=== PATIENT | female | born 1950 | race Caucasian/White ===

== ENCOUNTER 2018-10-05 00:28 | Outpatient (CLI) | payer MEDICARE, BC, SELFPAY ==
--- NOTE | 2018-10-05 15:03 | DI.DEXA_ITS ---
SYMPTOM/DIAGNOSIS: SCREENING FOR OSTEOPOROSIS IN POSTMENOPAUSAL WOMAN, Z78.0 DEXA SCAN: Routine examination. The lateral spine shows no compression deformities. Evaluation of the left hip shows a total T score of -0.7 and a Z score of 0.6. Evaluation of the lumbar spine shows a total T score of -0.9 and a Z score of 0.9. These are within normal limits. No evidence of osteoporosis is present. IMPRESSION: No evidence of osteoporosis.
== END 2018-10-05 00:48 ==
PROVIDERS: PCP Nurse Practitioner Family; Visit Provider Nurse Practitioner Family
DX: Z13.820 Encounter for screening for osteoporosis (principal); Z78.0 Asymptomatic menopausal state
CPT/HCPCS: 77080

== ENCOUNTER 2020-01-11 11:58 | Outpatient (CLI) | payer MEDICARE, BC, SELFPAY ==
--- NOTE | 2020-01-11 11:00 | DI.MAMMO_ITS ---
EXAM: MG MAMMO SCREENING CLINICAL HISTORY: screening Z12.39 TECHNIQUE: Mammograms were interpreted according to the usual protocol including computer analysis w [employer] CAD system, tomosynthesis and C-view imaging. COMPARISON: FINDINGS: The breasts are of moderate density with fairly symmetrical distribution of fibroglandular tissue. N o dominant mass or clumped microcalcification is identified in either breast. The current examinatio n is compared with previous examinations including January 2018 and there has been no gross interval lester nge in appearance in comparison with the previous examinations. IMPRESSION: No specific evidence of malignancy at this time. Routine screening examinations are suggested at yea rly intervals in this age group according to the ACS ACR guidelines. BI-RADS Cat 1 - Negative: Breast Density - Category B - Scattered areas of fibroglandular density
== END 2020-01-11 12:18 ==
PROVIDERS: PCP Nurse Practitioner Family; Visit Provider Nurse Practitioner Family
DX: Z12.31 Encounter for screening mammogram for malignant neoplasm of breast (principal)
CPT/HCPCS: 77063; 77067

== ENCOUNTER 2020-10-30 03:48 | Outpatient (CLI) | payer MEDICARE, BC, SELFPAY ==
[2020-10-30 09:08] LABS: Hemoglobin A1C 5.8 % (<5.7)
[2020-10-30 09:17] LABS: Anion Gap 9.1 mmol/L (3-11); BUN 14 mg/dL (7-18); CO2 27.9 mmol/L (21.0-32.0); Calcium 9.4 mg/dL (8.5-10.1); Calculated LDL 62 mg/dL (<100); Chloride 107 mmol/L (98-107); Cholesterol 156 mg/dL (<200); Estimated GFR 55.14 (mL/min/1.73m2); Glucose 97 mg/dL (74-106); HDL Cholesterol 59 mg/dL (40-60); Potassium 4.2 mmol/L (3.5-5.1); Sodium 144 mmol/L (136-145); Triglyceride 178 mg/dL (<150)
== END 2020-10-30 03:49 | disposition home or self-care (01) ==
LOC: LBO 03:48
PROVIDERS: PCP Nurse Practitioner Family; Visit Provider Nurse Practitioner Family
DX: I10 Essential (primary) hypertension (principal); R73.03 Prediabetes; E78.5 Hyperlipidemia, unspecified
CPT/HCPCS: 36415; 80048; 80061; 83036

== ENCOUNTER 2020-11-29 04:05 | Outpatient (CLI) | payer MEDICARE, BC, SELFPAY ==
[2020-11-29 10:07] LABS: Anion Gap 7.3 mmol/L (3-11); BUN 18 mg/dL (7-18); CO2 27.7 mmol/L (21.0-32.0); Calcium 9.3 mg/dL (8.5-10.1); Chloride 107 mmol/L (98-107); Estimated GFR 55.14 (mL/min/1.73m2); Glucose 102 mg/dL (74-106); Potassium 4.4 mmol/L (3.5-5.1); Sodium 142 mmol/L (136-145)
== END 2020-11-29 04:06 | disposition home or self-care (01) ==
LOC: LBO 04:05
PROVIDERS: PCP Nurse Practitioner Family; Visit Provider Nurse Practitioner Family
DX: I10 Essential (primary) hypertension (principal)
CPT/HCPCS: 36415; 80048

== ENCOUNTER 2021-02-15 03:34 | Outpatient (CLI) | payer MEDICARE, BC, SELFPAY ==
--- NOTE | 2021-02-15 08:15 | DI.MAMMO_ITS ---
Exam(s) MAMMO SCREENING EXAM: MAMMO SCREENING CLINICAL HISTORY: screening,Z12.39 TECHNIQUE: Mammograms were interpreted according to the usual protocol including computer analysis w [employer] CAD system, tomosynthesis and C-view imaging. COMPARISON: 2011 through 2019 FINDINGS: The breasts are composed of scattered fibroglandular densities, Breast Density category B. No suspicious masses or suspicious microcalcifications are seen. No skin thickening or abnormal axillary lymph nodes are seen. There has been no significant change from prior exams. IMPRESSION: BI-RADS Category 1, Negative mammogram Yearly screening mammography is recommended. Breast Density - Category B, scattered fibroglandular densities. A negative radiographic report should not delay biopsy if a dominant or clinically suspicious mass is present. Up to ten percent of cancers are not identified on mammography. A negative report may reinforce clinical impression. Adenosis and dense breasts may obscure an underlying neoplasm. False positive reports average 6 to 10%. Patient will receive a letter notifying them of these results.
== END 2021-02-15 03:54 ==
PROVIDERS: PCP Nurse Practitioner Family; Visit Provider Nurse Practitioner Family
DX: Z12.31 Encounter for screening mammogram for malignant neoplasm of breast (principal); R92.8 Other abnormal and inconclusive findings on diagnostic imaging of breast
CPT/HCPCS: 77063; 77067

== ENCOUNTER → 2021-02-28 13:29 | Outpatient (BNVA) | payer MEDICARE, BC, SELFPAY | PROVIDERS: PCP Nurse Practitioner Family; Referring Provider Nurse Practitioner Family; Visit Provider Physical Therapy Assistant | DX: Z12.11 Encounter for screening for malignant neoplasm of colon (principal); I12.9 Hypertensive chronic kidney disease with stage 1 through stage 4 chronic kidney disease, or unspecified chronic kidney disease; N18.9 Chronic kidney disease, unspecified; Z86.010 Personal history of colon polyps ==

== ENCOUNTER 2021-03-11 07:06 | Day surgery (SDC) | payer MEDICARE, BC, SELFPAY ==
--- NOTE | 2021-03-11 06:48 | W.COLOREPORT ---
Date of service: 03/11/21 Time of Service: 08:16 Colonoscopy Report Date of procedure: 03/11/21 Pre-op diagnosis general: Colon Cancer screening, hx of polyps Post-op diagnosis procedure note: same (polyps and diverticulosis) Procedure: Colonoscopy with polypectomy Surgeon: Christine Link Anesthesia Type: MAC (ASA 2/ Dunia Atkinson CRNA) Estimated blood loss (mL): 3 Pathology: other (Transverse polyp, rectal polyp) Complications: None Disposition: same day Indications: The patient is here for Colonoscopy pre-op. Her last screening was in 2018 and was remarkable for hyperplastic and sessile serrated polyps. She has no family history of colon cancer. She has not had any bowel habit changes. -Discussed colonoscopy bowel prep as well as the procedure. Discussed possible complications of the procedure to include bleeding, pain, perforation, missed small lesion/polyp, sore throat, aspiration and adverse reaction to the medications. Questions were answered to patient?s satisfaction. No guarantees were implied or given. Prep: Miralax/Dulcolax Procedure Start Time: :16 Procedure End Time: :40 Retraction Time: 19 minutes Findings: 2 small polyp minimal sigmoid diverticulosis Procedure Description: After informed consent was obtained the patient was taken to the procedure room and placed in a left decubitous position. Monitors were applied and a time out was done. The patients name, date of , procedure, allergies to medications and metal in their body was reviewed. The patient was then sedated. Once sedated and comfortable a rectal exam was done. External exam was normal. Internal exam revealed a normal sphincter tone and no palpable masses. The scope was then introduced and retro-flexed. No internal hemorrhoids, polyps or masses were identified on retro-flexion. The scope was then advanced to the cecum without difficulty. The ileocecal vlave and appendiceal orifice were identified. The prep was good. The scope was then slowly retracted over 19 minutes back into the rectum. Polyps were removed with cold forceps in the Transverse and rectum. There was mild diverticulosis noted in the sigmoid colon. The scope was removed and the patient was woken up and taken back to Same day surgery in stable condition. The patient tolerated the procedure well and there were no immediate complications. Follow up: The patient should follow up in 5 years unless they develop changes in bowel habits or other new gastrointestinal complaints.
--- NOTE | 2021-03-11 06:50 | PDOC.DSDIS_ITS ---
Discharge Plan Disposition Patient Disposition: HOME Condition: Good Discharge Details Reason For Visit: Colonoscopy Attending Provider: Christine Link Primary Care Provider: Lorena Huerta Home Meds and New Rx's Prescriptions: Continued cholecalciferol (vitamin D3) 1,000 unit capsule 1,000 unit PO DAILY RF: 0 calcium carbonate 600 MG tablet 600 mg PO DAILY RF: 0 metoprolol succinate 100 mg tablet extended release 24 hr 100 mg PO HS RF: 0 losartan 25 mg tablet 25 mg PO HS RF: 0 Discontinued bisacodyl [Dulcolax (bisacodyl)] 5 mg tablet,delayed release (DR/EC) 5 mg PO ONCE Qty: 4 RF: 0 polyethylene glycol 3350 17 gram/dose powder 238 g PO ONCE Qty: 238 RF: 0 Discharge Instructions Instructions: Colorectal Polyps (DC), Diverticulosis (DC) Additional Instructions: Findings: 2 small polyps mild diverticulosis Follow up: 5 years Please call if you develop: fevers >101.5 Nausea or Vomiting Abdominal pain that is not transient Rectal bleeding that is more then a tbsp A hard abdomen and inability to pass gas DAY SURGERY UNIT POST ENDOSCOPY INSTRUCTIONS Instructions for everyone who is given Anesthesia: For your safety, please do the following for the next 24 Hours: a. Do not drive or operate dangerous equipment b. Do not drink alcohol beverages or use any recreational drugs for the first 24 hours or while taking pain medications. The medications in your body may have a reaction that can be dangerous. c. Do not make any important decisions or sign any important papers 1. Generally there are no restrictions on your activity after a day or so has gone by, but you may feel a bit fatigued for a few days. 2. After you arrive home you may have a light meal and return to a normal diet as you can tolerate it without feeling sick to your stomach. 3. After surgery, you may feel pain or discomfort. This should be only t ransient, but if it persists please contact your doctor. 4. If there are any questions regarding the findings of your procedure, please feel free to contact your doctor. 6. If you are unable to contact your doctor with a problem, contact the hospital at [phone]. 7. Continue all your regular medications unless directed otherwise. I understand the above instructions and have no questions. Signature of Patient or Responsible Adult Escort Date/Time Name of Responsible Adult Escort Signature of Nurse Date/Time Activity:: Activity as Tolerated Diet:: As Tolerated Discharge Orders Discharge Orders: Discharge Order (Routine); Ordered 03/11/21 Ordered By: Christine Link
[2021-03-11 07:26] VITALS: BP 150/101; PULSE 97; RESP 18; TEMP 36.3; O2SAT 96
--- NOTE | 2021-03-11 07:37 | ANES.PREOP_ITS ---
General Info Date of Service Date Performed: 03/11/21 Height: 5 ft 9.69 in Weight: 84.6 kg Body Mass Index (BMI): 27.0 Surgical Procedure: Operation Date: 03/11/21 08:20 Proposed Procedures Side Surgeon p Colonoscopy Christine Link MD Meds Allergies and Home Medications Allergies Allergy/AdvReac Type Severity Reaction Status Date / Time nickel Allergy Intermediate Skin Rash Verified 02/28/21 13:31 Home Medication Medication Instructions Recorded calcium carbonate 600 mg PO DAILY 12/30/16 cholecalciferol (vitamin D3) 25 1,000 unit PO DAILY 10/01/18 mcg (1,000 unit) capsule bisacodyl 5 mg tablet,delayed 5 mg PO ONCE #4 tab 02/28/21 release polyethylene glycol 3350 17 238 g PO ONCE #238 g 02/28/21 gram/dose oral powder losartan 25 mg PO HS 03/08/21 metoprolol succinate 100 mg PO HS 03/08/21 Current Visit Medications: Current Medications Generic Name Dose Route Start Last Admin Trade Name Freq PRN Reason Stop Dose Admin Hyoscyamine Sulfate 0.125 mg 03/11/21 06:52 Hyoscyamine 0.125 Mg Sl/Oral/Chew SL DIRECTED PRN Ringer's Solution 1,000 mls @ 80 mls/hr 03/11/21 06:00 IV 04/07/21 23:59 [facility]ION [facility] IV Miscellaneous Supplies 1 each 03/11/21 06:00 Iv Access IV 04/07/21 23:59 DIRECTED LILI Ondansetron HCl 4 mg 03/11/21 06:52 Ondansetron 4 Mg/2 Ml Vial IVP Q4H PRN PRN Nausea / Vomiting Sodium Chloride 0 ml 03/11/21 06:00 Normal Saline Flush 10 Ml Syr IV 04/07/21 23:59 PRN PRN Sodium Chloride 0 ml 03/11/21 06:00 Normal Saline 10 Ml Vial IJ 04/07/21 23:59 DIRECTED PRN Sterile Water 0 ml 03/11/21 06:00 Water,Injection,Sterile 10 Ml Vial IJ 04/07/21 23:59 DIRECTED PRN PFSH Active Problems Active Problems: Problem Status Onset Code IVONNE (obstructive sleep apnea) G47.33 Essential hypertension I10 Chronic kidney disease N18.9 Hyperlipidemia E78.5 Prediabetes R73.03 Insomnia G47.00 Tinnitus H93.19 Medical History Medical History Chronic kidney disease Depressive disorder Essential hypertension Generalized anxiety disorder Hyperlipidemia Insomnia IVONNE (obstructive sleep apnea) Original PSG 03/09/16. On dreamTAP oral appliance device Periodic limb movement disorder (PLMD) Prediabetes Serrated adenoma of colon (~11/2017) Supraventricular tachycardia Tinnitus Surgical History Surgical History S/P colonoscopy (11/23/17) S/P ORIF (open reduction internal fixation) fracture (~2005) For right humerus fracture Status post tonsillectomy and adenoidectomy Tobacco Smoking/Tobacco Use Status: Never Passive smoking exposure: No Alcohol Alcohol Intake: current Alcohol intake frequency: 0-2 drinks per day Alcohol type: wine Substance Use Substance use: Never Substance use type: does not use Prental History History 5 Para Hx # Term Pregnancies Multiple births Hx # Pregnancies Ectopic pregnancies AB induced 1 Hx Number of Living Children 3 AB spontaneous 1 Vital Signs and Lab Results Vital Signs Most Recent Vital Signs in EMR: Most Recent Vital Signs Temp Pulse Resp BP Pulse Ox 36.3 C L 97 H 18 150/101 H 96 03/11/21 07:26 03/11/21 07:26 03/11/21 07:26 03/11/21 07:26 03/11/21 07:26 Lab Results Blood Type / Crossmatch: No Data to Display Complete Blood Count: No Data to Display Complete Metabolic Panel: No Data to Display Liver Function Panel: No Data to Display Coagulation Panel: No Data to Display Cardiac Panel: No Data to Display Arterial Blood Gas: No Data to Display Venous Blood Gas: No Data to Display Pancreas Panel: No Data to Display Thyroid Panel: No Data to Display Infectious Disease: No Data to Display Blood Cultures: No Data to Display Toxicology Panel: No Data to Display Anesthesia Assessment and Plan Anesthesia History Personal History: No History of Anesthesia Complications Family History: No Family History of Anesthesia Complications Exercise Tolerance Exercise Tolerance: Metabolic Equivalents>4 Pertinent Negatives Pertinent Negatives: No Symptoms of GERD, No Major Cardiovascular Symptoms or Complaints and No Major Pulmonary Symptoms or Complaints Cardiac & Pulmonary Exam Cardiac Exam: Normal S1/S2 Heart Sounds Pulmonary Exam: Clear Bilateral Breath Sounds Airway Exam Known Difficult Airway: No Mallampati Class: 2 Mouth Opening: Normal (> 3cm) Thyromental Distance: Greater than 3 cm Neck Range of Motion: Full ROM Neck Circumference: Normal Teeth Condition: Normal Dentition ASA Classification ASA Score: ASA 2 Emergency Case?: No NPO Status NPO Status: NPO Clears >2 hours, Solids >8 hours Anesthesia Plan Resuscitation Status: Full Code Anesthesia Technique: General Anesthesia Airway Planned: Natural Airway Monitors Used: Standard Monitors
[2021-03-11] MEDS: Lactated Ringers 1,000 ML 80 ML IV (07:48)
[2021-03-11 08:05] VITALS: BMI 27.0
--- NOTE | 2021-03-11 08:26 | BOWEL_PTH ---
PATIENT: Key Sweeney LOC: [facility] U#:[id number] AGE/SX: 71/F ROOM: RE03/11/[address]: Christine Link MD : 1950 BED: DIS: 03/11/2021 SPEC #: [id number] RECD: 03/11/21 12:53 STATUS: TOREY STORY #: [id number] EMILY: 03/11/21 08:[address]: Christine Link DEPT: Surgical Specimen RECD BY: Mag Lora ENTERED: 03/11/21 12:54 SP TYPE: Bowel OTHR DR: DREW Boateng Tissues: 1 - BIOPSY BOWEL 2 - BIOPSY BOWEL Procedures: GROSS AND MICRO LEVEL 4 Comments: [id number]
[2021-03-11 09:05] VITALS: BP 120/74; PULSE 68; RESP 16; TEMP 36.2; O2SAT 95
--- NOTE | 2021-03-11 09:19 | W.ANESPOSTOP ---
Postoperative Evaluation Date, Time and Location Date Performed: 03/11/21 Time Performed: 09:06 Patient Location: Day Surgery Unit Vital Signs Most Recent Imported Vital Signs: Most Recent Vital Signs Temp Pulse Resp BP Pulse Ox 36.2 C L 68 16 120/74 95 03/11/21 09:05 03/11/21 09:05 03/11/21 09:05 03/11/21 09:05 03/11/21 09:05 Pain Score Most Recent Pain Score: Most Recent Pain Score Pain Level 0 03/11/21 09:05 Assessment Mental Status: Awake (Alert & Oriented to Patient Baseline) Airway and Respiratory Function: Patent airway with normal (patient baseline) respiratory exam Cardiovascular Function: Hemodynamically Stable Hydration Status: Adequately Hydrated Nausea & Vomiting: No Nausea or Vomiting Pain: Pt. Denies Any Pain Peripheral Nerve Block: Patient did not receive a nerve block
== END 2021-03-11 09:40 | disposition home or self-care (01) ==
LOC: SUR 07:07
PROVIDERS: PCP Nurse Practitioner Family; Visit Provider Surgery
PROC: 0DJD8ZZ Inspection of Lower Intestinal Tract, Via Natural or Artificial Opening Endoscopic (ICD-10-PCS; CPT 45378; principal; 2021-03-11 08:15)
DX: Z12.11 Encounter for screening for malignant neoplasm of colon (principal); Z86.010 Personal history of colon polyps; K62.1 Rectal polyp; D12.3 Benign neoplasm of transverse colon; K57.30 Diverticulosis of large intestine without perforation or abscess without bleeding
CPT/HCPCS: 45380; 88305; J2001

== ENCOUNTER 2021-11-25 02:52 | Outpatient (CLI) | payer MEDICARE, BC, SELFPAY ==
[2021-11-25 12:18] LABS: Hemoglobin A1C 6.2 % (<5.7)
[2021-11-25 12:50] LABS: Anion Gap 8.2 mmol/L (3-11); BUN 17 mg/dL (7-18); CO2 27.8 mmol/L (21.0-32.0); CREATININE 0.8 mg/dL (0.55-1.02); Calcium 9.3 mg/dL (8.5-10.1); Chloride 106 mmol/L (98-107); Glucose 100 mg/dL (74-106); Potassium 4.5 mmol/L (3.5-5.1); Sodium 142 mmol/L (136-145)
== END 2021-11-25 02:53 | disposition home or self-care (01) ==
LOC: LBO 02:52
PROVIDERS: PCP Nurse Practitioner Family; Visit Provider Nurse Practitioner Family
DX: I10 Essential (primary) hypertension (principal); R73.03 Prediabetes
CPT/HCPCS: 36415; 80048; 83036

== ENCOUNTER → 2022-02-19 02:06 | Outpatient (CLI) | payer MEDICARE, BC, SELFPAY ==
--- NOTE | 2022-02-19 14:17 | DI.MAMMO_ITS ---
Exam(s) MAMMO SCREENING EXAM: MAMMO SCREENING CLINICAL HISTORY: screening, Z12.39. TECHNIQUE: Bilateral full field digital CC and MLO mammographic images were obtained with 3D tomosyn thesis and utilizing computer aided detection (CAD). COMPARISON: Prior mammograms were reviewed, the most recent being 02/2021. FINDINGS: There has been no significant change in the appearance and distribution of fibroglandular tissue. Asymmetric density in the left breast located 10 cm in from the nipple is unchanged from prior studie s dating back to at least 2011 and therefore benign. There are no new spiculated masses nor malignant appearing microcalcification groups. There is no significant architectural distortion nor skin thickening-retraction. IMPRESSION: No radiographic evidence of malignancy. BI-RADS Category 2 - Benign Findings Breast Density - Category B - Scattered areas of fibroglandular density Breast density Category C or D implies that the patient has dense breast tissue. Dense breast tissue can make it harder to find cancer on a mammogram. Dense breast tissue is also associated with an incr eased risk of breast cancer. This information about the result of the mammogram report was provided to the patient to raise their awareness. Use this report when you speak with the patient about their risks for breast cancer, which includes their family history. At that time, you may recommend additional screening tests (Ultrasoun d or MRI) as these tests may add significant information. A negative radiographic report should not delay biopsy if a dominant or clinically suspicious mass is present. Up to ten percent of cancers are not identified on mammography. A negative report may reinforce clinical impression. Adenosis and dense breasts may obscure an underlying neoplasm. False positive reports average 6 to 10%. Patient will receive a letter notifying them of these results.
== END ==
PROVIDERS: PCP Nurse Practitioner Family; Visit Provider Nurse Practitioner Family
DX: Z12.31 Encounter for screening mammogram for malignant neoplasm of breast (principal); R92.8 Other abnormal and inconclusive findings on diagnostic imaging of breast
CPT/HCPCS: 77063; 77067

== ENCOUNTER 2022-11-13 03:22 | Outpatient (CLI) | payer MEDICARE, BC, SELFPAY ==
[2022-11-13 13:00] LABS: Hemoglobin A1C 6.1 % (<5.7)
[2022-11-13 13:09] LABS: Anion Gap 9.3 mmol/L (3-11); BUN 14 mg/dL (7-18); CO2 25.7 mmol/L (21.0-32.0); CREATININE 1.1 mg/dL (0.55-1.02); Calcium 9.2 mg/dL (8.5-10.1); Calculated LDL 70 mg/dL (<100); Chloride 108 mmol/L (98-107); Cholesterol 161 mg/dL (<200); Estimated GFR 54.06 (mL/min/1.73m2); Glucose 110 mg/dL (74-106); HDL Cholesterol 55 mg/dL (40-60); Potassium 4.4 mmol/L (3.5-5.1); Sodium 143 mmol/L (136-145); TSH (W/Ref FT4) 1.74 uIU/mL (0.36-3.74); Triglyceride 180 mg/dL (<150)
== END 2022-11-13 03:23 | disposition home or self-care (01) ==
LOC: LOS 03:23
PROVIDERS: PCP Nurse Practitioner Family; Visit Provider Nurse Practitioner Family
DX: E78.5 Hyperlipidemia, unspecified (principal); I10 Essential (primary) hypertension; R73.03 Prediabetes; G47.00 Insomnia, unspecified
CPT/HCPCS: 36415; 80048; 80061; 83036; 84443

== ENCOUNTER 2023-03-11 01:56 | Outpatient (CLI) | payer MEDICARE, BC, SELFPAY ==
--- NOTE | 2023-03-11 07:45 | DI.MAMMO_ITS ---
Exam(s) MAMMO SCREENING EXAM: MAMMO SCREENING CLINICAL HISTORY: screening, Z12.39. TECHNIQUE: Bilateral full field digital CC and MLO mammographic images were obtained with 3D tomosyn thesis and utilizing computer aided detection (CAD). COMPARISON: Prior mammograms were reviewed. FINDINGS: There has been no significant change in the appearance and distribution of the fibroglandular tissue. Asymmetric density lateral of center in left breast is unchanged from prior mammograms. There are no new spiculated masses nor new malignant appearing microcalcification groups. There is no significant architectural distortion nor skin thickening-retraction. IMPRESSION: No radiographic evidence of malignancy. BI-RADS Category 1 - Negative Breast Density - Category B - Scattered areas of fibroglandular density Breast density Category C or D implies that the patient has dense breast tissue. Dense breast tissue can make it harder to find cancer on a mammogram. Dense breast tissue is also associated with an incr eased risk of breast cancer. This information about the result of the mammogram report was provided to the patient to raise their awareness. Use this report when you speak with the patient about their risks for breast cancer, which includes their family history. At that time, you may recommend additional screening tests (Ultrasoun d or MRI) as these tests may add significant information. A negative radiographic report should not delay biopsy if a dominant or clinically suspicious mass is present. Up to ten percent of cancers are not identified on mammography. A negative report may reinforce clinical impression. Adenosis and dense breasts may obscure an underlying neoplasm. False positive reports average 6 to 10%. Patient will receive a letter notifying them of these results.
== END 2023-03-11 02:16 ==
PROVIDERS: PCP Nurse Practitioner Family; Visit Provider Nurse Practitioner Family
DX: Z12.31 Encounter for screening mammogram for malignant neoplasm of breast (principal)
CPT/HCPCS: 77063; 77067

== ENCOUNTER 2024-03-11 02:33 | Outpatient (CLI) | payer MEDICARE, BC, SELFPAY ==
--- OUTSIDE RECORDS SUMMARY | 2024-03-11 02:50 | XMS_ITS | Encounter Summary ---
Author Organization [facility] Address [address] [place] [address] Care Team Providers Care Statistical Modeler Name Role Phone Unknown, Provider Primary Care Provider [phone] Encounter Details Date Type Department Care Team (Late st Contact Info) Description 07/30/2009 Orders Only [facility] Laboratory Services - [facility] ([facility]) [address] [place], [place] [id number] Areli Rosario MD [address] [id number] Social History Tobacco Use Types Packs/Day Years Used Date Smoking Tobacco: Never Assessed Sex and Gender Information Value Date Recorded Sex Assigned at Not on file Gender Identity Not on file Sexual Orientation Not on file documented as of this encounter Plan of Treatment Upcoming Encounters Date Type Department Care Team (Late st Contact Info) Description 07/04/2024 14:00 EST Audiology [facility] Audiology - [address] [address] Addie Bolivar, AuD [address] [place] [phone] 07/29/2024 13:00 EST Audiology [facility] Audiology - [address] [address] Addie Bolivar, AuD [address] [place] [phone] 08/19/2024 11:30 EST Audiology [facility] Audiology - [facility] [address] [place] [address] Addie Bolivar, AuD [address] [place] [phone] documented as of this encounter Procedures Procedure Name Priority Date/Time Associated Diagnosis Comments HPV DETECTION, HIGH RISK TYPES Routine 07/30/2009 14:32 EST CYTOPATHOLOGY Routine 07/30/2009 0:00 EST documented in this encounter Results * HUMAN PAPILLOMA VIRUS DNA TEST (07/30/2009 14:32 EST) Specimen Description Cervix, ThinPrep vial [facility] Result Negative for HPV types 16, 18, 31, 33, 35, 39, 45, 51, 52, 56, 58, 59, and 68. [facility] Report Status Final 08/09/2009 [facility] 07/30/2009 14:3 2 EST 08/06/2009 14:32 EST Areli Rosario MD MICROBIOLOGY - GENER AL ORDERABLES Performing Organization Address City/State/[facility] Co de Phone Number [facility] [address] [place] [address] * CYTOPATHOLOGY (07/30/2009 0:00 EST) Pathology Report: CYTOPATHOLOGY REPORT ? Reports generated via electronic interface contain original data; ? however they are lacking the format of the original report. ? Caution should be taken when reading/interpreti ng unformatted reports. ? Name: ? JANELL CAMILO ? Accession #: ? [id number] ? : ? 1950 (Age: 59) ??F ?Collect Date: ? 07/30/2009 ? Location: ? [facility] ? Receive Date: ? 08/01/2009 ? Provider: ?ARELI ROSARIO MD ? Copy to: ? Specimen/Source: ?Pap Test, Cervix/Endocervix, ThinPrep Imaging System ? with manual evaluation ? 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 Other: ? HPVDX - HPV testing requested regardless of diagnosis on current ThinPrep Pap ?? test. ? SPECIMEN ADEQUACY ? Satisfactory for Evaluation ? - transformation zone component present ? - scant squamous epithelial component ? GENERAL CATEGORIZATION ? Negative for Intraepithelial Lesion or Malignancy ? Document reviewed and electronically signed by: ? Marylou [place], [place](ASCP) ? Report Date: ??08/06/2009 10:44 ? End of Report ? [facility] 07/30/2009 08/01/2009 Areli Rosario MD PATHOLOGY ORDERABLES [facility] [address] [place] [address] documented in this encounter Visit Diagnoses Not on filedocumented in this encounter Care Teams Statistical Modeler Relationship Specialty Start Date End Date Unknown, Provider, PCP - General 06/10/09 04/07/12 documented as of this encounter
--- OUTSIDE RECORDS SUMMARY | 2024-03-11 02:50 | XMS_ITS | Referral Summary ---
Author Organization [facility] Address [address] [place] [address] Care Team Providers Care Kiln Loader Name Role Phone Carline Reyna WET POUR SUPERVISOR Primary Care Provider Social History Tobacco Use Types Packs/Day Years Used Date Smoking Tobacco: Never Assessed Interpersonal Safety Answer Date Record ed Physically Hurt Never 03/11/2020 Verbally Threaten Not on file 03/11/2020 Sex and Gender Information Value Date Recorded Sex Assigned at Not on file Gender Identity Not on file Sexual Orientation Not on file Plan of Treatment Upcoming Encounters Date Type Department Care Team (Late st Contact Info) Description 07/04/2024 14:00 [facility] Audiology [facility] Audiology [address] [address] Addie Bolivar, AuD [address] [place] [phone] 07/29/2024 13:00 [facility] Audiology [facility] Audiology [address] [address] Addie Bolivar, AuD [address] [place] [phone] 08/19/2024 11:30 [facility] Audiology [facility] Audiology [address] [address] Addie BolivarAnastacia [address] [place] [phone] Patel Key E Personal/Family Self [address] [facility] [place] [address] Patel, Key E Personal/Family Self [address] [facility] [place] [address] Patel Key E Personal/Family Self [address] [facility] [place] [address] Carla Sweeneyila E Personal/Family Self [address] [place] [address] Care Teams Kiln Loader Relationship Specialty Start Date End Date Carline Reyna NP PCP - General 11/25/17
--- OUTSIDE RECORDS SUMMARY | 2024-03-11 02:50 | XMS_ITS | Encounter Summary ---
Author Organization [facility] Address [address] [place] [address] Care Team Providers Care Metal Bonding Press Operator Name Role Phone Areli Dueñas MD Primary Care Provider [phone] Encounter Details Date Type Department Care Team (Late st Contact Info) Description 06/16/2014 Results Only [facility]- [facility] [phone] Betsey Parson, CAL [address] [place] [address] [place] [phone] Social History Tobacco Use Types Packs/Day Years Used Date Smoking Tobacco: Never Assessed Sex and Gender Information Value Date Recorded Sex Assigned at Not on file Gender Identity Not on file Sexual Orientation Not on file documented as of this encounter Plan of Treatment Upcoming Encounters Date Type Department Care Team (Late st Contact Info) Description 07/04/2024 14:00 EST Audiology [facility] Audiology - [address] [address] Addie Bolivar, AuD [address] [place] [phone] 07/29/2024 13:00 EST Audiology [facility] Audiology - [address] [phone] Addie Bolivar, AuD 0 [place] [phone] 08/19/2024 11:30 EST Audiology [facility] Audiology - [facility] [address] [place], [place] [address] Addie Bolivar, AuD [address] [place] [phone] documented as of this encounter Procedures Procedure Name Priority Date/Time Associated Diagnosis Comments PAP TEST- RESULT ONLY Routine 06/16/2014 0:00 EST documented in this encounter Results * PAP TEST- RESULT ONLY (06/16/2014 0:00 EST) Pathology Report: CYTOPATHOLOGY REPORT Reports generated via electronic interface contain original data; however they are lacking the format of the original report. Caution should be taken when reading/interpreti ng unformatted reports. Name: ? JANELL CAMILO ? Accession #: ? [id number] ? : ? 1950 (Age: 64) ??F ?Collect Date: ? 06/16/2014 ? Location: ? [facility] ? Receive Date: ? 06/19/2014 ? Provider: BETSEY PARSON STORAGE MANAGEMENT CONSULTANT Copy to: ? Final Report SPECIMEN ADEQUACY ? Satisfactory for Evaluation - transformation zone component present GENERAL CATEGORIZATION ? Negative for Intraepithelial Lesion or Malignancy ?? Menstrual/Pregnanc y Status: ??Post Menopausal Specimen/Source: ??Pap Test, Cervix/Endocervix, ThinPrep Imaging System with manual evaluation Document reviewed and electronically signed by: ? Armani Brady, CT(ASCP) ? Report ??Date: 06/26/2014 11:32 HPV with Pap Test ? Date Ordered: ? 06/26/2014 ? Status: ?? Signed Out ?Date Complete: ? 06/28/2014 ? By: ??System Interface ? Date Reported: ? 06/28/2014 ? Interpretation RESULT: Positive for high or intermediate risk HPV. E6 OR E7 mRNA from one or more types of HPV types 16,18,31, 33,35,39,45,51,52, 56,58,59,66, and 68 is detected by nanoscience technician mediated amplification. High and intermediate risk HPV types are associated with most squamous intraepithelial lesions and cervical cancers. Comments Document reviewed and electronically signed by: ? System Interface ? Report date: 06/28/2014 By the signature above, the attending physician certifies that he/she has personally conducted a gross and/or microscopic examination of the described specimens and rendered or confirmed the above diagnosis. End of Report [facility] 06/16/2014 06/19/2014 Betsey Parson STORAGE MANAGEMENT CONSULTANT PATHOLOGY ORDERABLES [facility] [address] [place] [address] documented in this encounter Visit Diagnoses Not on filedocumented in this encounter Care Teams Metal Bonding Press Operator Relationship Specialty Start Date End Date Areli Dueñas MD [address] [place] [address] PCP - General 04/08/12 11/24/17 documented as of this encounter
--- OUTSIDE RECORDS SUMMARY | 2024-03-11 02:50 | XMS_ITS | Encounter Summary ---
Author Organization [facility] Address [address] [place] [address] Care Team Providers Care Physician Practice Coordinator Name Role Phone Areli Dueñas MD Primary Care Provider [phone] Encounter Details Date Type Department Care Team (Latest Contact Info) Description 11/23/2017 9:12 EDT - 11/23/2017 23:59 EDT Hospital Encounter [address] [address] Unknown, Provider, Discharge Disposition: Home or Self Care Social History Tobacco Use Types Packs/Day Years Used Date Smoking Tobacco: Never Assessed Sex and Gender Information Value Date Recorded Sex Assigned at Not on file Gender Identity Not on file Sexual Orientation Not on file documented as of this encounter Discharge Disposition Disposition Code Departure Means Destination Home or Self [facility] documented in this encounter Plan of Treatment Upcoming Encounters Date Type Department Care Team (Late st Contact Info) Description 07/04/2024 14:00 EST Audiology [facility] Audiology [address] [address] Addie Bolivar AuD [address] [place] [phone] 07/29/2024 13:00 EST Audiology [facility] Audiology - [address] [address] JaskaranBakari alvaradoyson, AuD [address] [place] [phone] 08/19/2024 11:30 EST Audiology [facility] Audiology - [place] [address] [place] [address] Addie Bolivar, AuD [address] [place] [phone] documented as of this encounter Visit Diagnoses Not on filedocumented in this encounter Care Teams Physician Practice Coordinator Relationship Specialty Start Date End Date Areli Dueñas MD [address] [place], [place] [address] PCP - General 04/08/12 11/24/17 documented as of this encounter
--- OUTSIDE RECORDS SUMMARY | 2024-03-11 02:50 | XMS_ITS | Encounter Summary ---
Author Organization [facility] Address [address] [place] [address] Care Team Providers Care Fight Manager Name Role Phone Areli Dueñas MD Primary Care Provider [phone] Encounter Details Date Type Department Care Team (Late st Contact Info) Description 11/23/2017 Results Only [facility] [phone] David Paiz MD [address] [place] [address] [place] [address] Social History Tobacco Use Types Packs/Day Years Used Date Smoking Tobacco: Never Assessed Sex and Gender Information Value Date Recorded Sex Assigned at Not on file Gender Identity Not on file Sexual Orientation Not on file documented as of this encounter Plan of Treatment Upcoming Encounters Date Type Department Care Team (Late st Contact Info) Description 07/04/2024 14:00 EST Audiology [facility] Audiology - [address] [address] Addie Bolivar, AuD 0 [place] [phone] 07/29/2024 13:00 EST Audiology [facility] Audiology - [address] [address] Addie Bolivar, AuD 0 [place] [phone] 08/19/2024 11:30 EST Audiology [facility] Audiology - [facility] [address] [place], [place] [phone] Addie Bolivar, AuD [address] [place] [phone] documented as of this encounter Procedures Procedure Name Priority Date/Time Associated Diagnosis Comments SURGICAL PATHOLOGY Routine 11/23/2017 16 :34 EDT documented in this encounter Results * SURGICAL PATHOLOGY (11/23/2017 16:34 EDT) Pathology Report: SURGICAL PATHOLOGY REPORT Reports generated via electronic interface contain original data; however they are lacking the format of the original report. Caution should be taken when reading/interpret ing unformatted reports. Name: ? LESLEEJANELL ? Accession #: ? [id number] ? : ? 1950 (Age: 67) ??F ? Collect Date: ? 11/23/2017 ? Location: ? [facility] ? Receive Date: ? 11/23/2017 ? Provider: DAVID PAIZ MD Copy to: BETSEY PARSON SCRUFF WORKER ? Final Pathologic Diagnosis: A. ??RECTAL POLYPS, X 2, BIOPSIES: - ??Fragments of hyperplastic polyps. B. ??DECSENDING COLON POLYP, BIOPSIES: - ??Fragments of sessile serrated adenoma(s). C. ??SIGMOID COLON POLYP, BIOPSIES: - ??Fragments of hyperplastic polyp(s). Document reviewed and electronically signed by: FAYE SUMMERS MD Report ??Date: 11/24/2017 14:00 By the signature above, the attending physician certifies that he/she has personally conducted a gross and/or microscopic examination of the described specimens and rendered or confirmed the above diagnosis. Specimen(s) Received: A. ??Rectal polyps x2 B. ??Descending colon polyp C. ??Sigmoid colon polyp Clinical History: Screening for colon cancer Gross Description: A. ?Received in formalin labelled with proper patient identification (initials R, S) and rectal polyps x2 are three rangel-brown irregular to nodular tissues ranging from 0.2 x 0.2 x 0.2 cm to 0.3 x 0.2 x 0.2 cm. Entirely submitted in A1. B. ?Received in formalin labelled with proper patient identification (initials R, S) and descending colon polyp are two rangel irregular tissues, 0.2 x 0.1 x 0.1 cm and 0.3 x 0.1 x 0.1 cm. Entirely submitted in B1. C. ?Received in formalin labelled with proper patient identification (initials R, S) and sigmoid colon polyp are two rangel-brown irregular tissues averaging 0.2 x 0.2 x 0.1 cm. Entirely submitted in C1. SHARI Medrano (ASCP) 11/23/2017 5:30 PM End of Report [facility] 11/23/2017 16:3 4 EDT 11/23/2017 16:34 EDT David Paiz MD PATHOLOGY ORDERA BLES [facility] [address] [place] [address] documented in this encounter Visit Diagnoses Not on filedocumented in this encounter Care Teams Fight Manager Relationship Specialty Start Date End Date Areli Dueñas MD [address] [place] [address] PCP - General 04/08/12 11/24/17 documented as of this encounter
--- OUTSIDE RECORDS SUMMARY | 2024-03-11 02:50 | XMS_ITS | Encounter Summary ---
Author Organization [facility] Address [address] [place] [address] Care Team Providers Care Rn Endoscopy Name Role Phone Carline Reyna MANAGER PET Primary Care Provider Encounter Details Date Type Department Care Team (Latest Contact Info) Description 06/13/2022 10:06 EDT - 06/13/2022 23:59 EDT Hospital Encounter [facility] - [facility] [address] [place], [place] [address] Nurse 8, [facility] Discharge Disposition: Home or Self Care Social [...] Code Departure Means Destination Home or Self Care documented in this encounter Plan of Treatment Upcoming Encounters Date Type Department Care Team (Late st Contact Info) Description 07/04/2024 14:00 EST Audiology [facility] Audiology - [address] [address] Addie Bolivar AuD [address] [place] [phone] 07/29/2024 13:00 EST Audiology [facility] Audiology - [address] [address] Martabetsey Addie, AuD [address] [place] [phone] 08/19/2024 11:30 EST Audiology [facility] Audiology - [address] [address] Addie Bolivar, AuD [address] [place] [phone] documented as of this encounter Visit Diagnoses Not on filedocumented in this encounter Care Teams Rn Endoscopy Relationship Specialty Start Date End Date Carline Reyna NP PCP - General 11/25/17 documented as of this encounter
--- OUTSIDE RECORDS SUMMARY | 2024-03-11 02:50 | XMS_ITS | Encounter Summary ---
Author Organization [facility] Address [address] [place] [address] Care Team Providers Care Apartment Rental Agent Name Role Phone Unavailable Primary Care Provider Unavailabl e Encounter Details Date Type Department Care Team (Late st Contact Info) Description 05/17/2008 Before [facility] Converted Visit ([facility]) [facility] - Maple conversion [address] [place] [address] Sven Dumont, DO [address] [facility] [address] [place] [address] Social History Tobacco Use Types Packs/Day Years Used Date Smoking Tobacco: Never Assessed Sex and Gender Information Value Date Recorded Sex Assigned at Not on file Gender Identity Not on file Sexual Orientation Not on file documented as of this encounter Plan of Treatment Upcoming Encounters Date Type Department Care Team (Late st Contact Info) Description 07/04/2024 14:00 EST Audiology [facility] Audiology - [address] [address] Addie Bolivar, AuD 0 [place] [phone] 07/29/2024 13:00 EST Audiology [facility] Audiology - [address] [address] Addie Bolivar, AuD 0 [place] [phone] 08/19/2024 11:30 EST Audiology [facility] Audiology - [facility] [address] [place], [place] [address] Addie Bolivar, AuD [address] [place] [phone] documented as of this encounter Procedures Procedure Name Priority Date/Time Associated Diagnosis Comments SURGICAL PATHOLOGY Routine 05/17/2008 0:00 EDT documented in this encounter Results * SURGICAL PATHOLOGY (05/17/2008 0:00 EDT) Pathology Report: SURGICAL PATHOLOGY REPORT ? Reports generated via electronic interface contain original data; ? however they are lacking the format of the original report. ? Caution should be taken when reading/interpreti ng unformatted reports. ? Name: ? JANELL CAMILO ? Accession #: ? [id number] ? : ? 1950 (Age: 58) ??F ? Collect Date: ? 05/17/2008 ? Location: ? [facility] ? Receive Date: ? 05/18/2008 ? Provider: SVEN DUMONT DO ? Copy to: EMMA ROSARIO MD ? Final Pathologic Diagnosis: ? Colon, 60 cm, polypectomy: ? - Fragments of hyperplastic polyp, inflamed. ? Document reviewed and electronically signed by: ? EMI VAN MD ? Report ??Date: 05/23/2008 08:57 ? By the signature above, the attending physician certifies that he/she has ? personally conducted a gross and/or microscopic examination of the described ? specimens and rendered or confirmed the above diagnosis. ? Specimen(s) Received: ? Polyp 60 cm colon ? Clinical History: ? Screening for colon cancer ? Gross Description: ? Received in Hollande's solution labelled Patel and colon polyp 60 cm are three pink-rangel irregular soft tissues ranging from 0.2 x 0.1 x 0.1 cm to 0.4 x ?? 0.2 x 0.1 cm, submitted in toto in a single cassette. (Liz Currie)/mosesk ? End of Report ? [facility] 05/17/2008 05/18/2008 17: 05 EDT Sven Dumont DO PATHOLOGY ORDER MAGGIE [facility] [address] [place] [address] documented in this encounter Visit Diagnoses Not on filedocumented in this encounter
--- OUTSIDE RECORDS SUMMARY | 2024-03-11 02:50 | XMS_ITS | Encounter Summary ---
Author Organization [facility] Address [address] [place] [address] Care Team Providers Care Cistern Room Operator Name Role Phone Unknown, Provider Primary Care Provider Encounter Details Date Type Department Care Team (Late st Contact Info) Description 04/02/2012 Results Only [facility] - [facility] ([facility]) [address] [place] [address] Gordo Bowman, DO [address] [place] [address] Social History Tobacco Use Types Packs/Day Years Used Date Smoking Tobacco: Never Assessed Sex and Gender Information Value Date Recorded Sex Assigned at Not on file Gender Identity Not on file Sexual Orientation Not on file documented as of this encounter Plan of Treatment Upcoming Encounters Date Type Department Care Team (Late st Contact Info) Description 07/04/2024 14:00 EST Audiology [facility] Audiology - [address] [address] Addie Bolivar, AuD [address] [place] [phone] 07/29/2024 13:00 EST Audiology [facility] Audiology - [address] [address] Addie Bolivar, AuD [address] [place] [phone] 08/19/2024 11:30 EST Audiology [facility] Audiology - [facility] [address] [place] [address] Addie Bolivar, AuD [address] [place] [phone] documented as of this encounter Procedures Procedure Name Priority Date/Time Associated Diagnosis Comments SURGICAL PATHOLOGY Routine 04/02/2012 0:00 EDT documented in this encounter Results * SURGICAL PATHOLOGY (04/02/2012 0:00 EDT) Pathology Report: SURGICAL PATHOLOGY REPORT Reports generated via electronic interface contain original data; however they are lacking the format of the original report. Caution should be taken when reading/interpreti ng unformatted reports. Name: ? JANELL CAMILO ? Accession #: ? [id number] ? : ? 1950 (Age: 62) ??F ? Collect Date: ? 04/02/2012 ? Location: ? [facility] ? Receive Date: ? 04/03/2012 ? Provider: GORDO BOWMAN DO Copy to: EMMA ROSARIO MD ? Final Pathologic Diagnosis: ? Skin of thigh, left posterior, excisional biopsy: 1. ?Seborrheic keratosis, inflamed. ? - Margins of excision negative. Document reviewed and electronically signed by: FITZ AYALA MD Report ??Date: 04/06/2012 12:50 By the signature above, the attending physician certifies that he/she has personally conducted a gross and/or microscopic examination of the described specimens and rendered or confirmed the above diagnosis. Specimen(s) Received: ? 1.0 cm L post thigh excisional bx Clinical History: ? Raised lesion ? basal cell Gross Description: ? Received in formalin labelled Patel, Janell and Lt post thigh is an unoriented elliptical excision of marin-white smooth to wrinkled skin measuring 1.3 x 0.8 cm and is excised to a depth of 0.2 cm. ??There is an eccentric 0.5 x 0.4 x 0.1 cm ovoid marin-white granular papule. ??The margins are inked. ??The specimen is serially sectioned and entirely submitted as (A1) central sections and (A2) and tips, reverse en face. (Bryce De La Paz)/mpl End of Report [facility] 04/02/2012 04/03/2012 8:4 5 EDT Gordo Bowman DO PATHOLOGY ORDERABL ES [facility] [address] [place] [address] documented in this encounter Visit Diagnoses Not on filedocumented in this encounter Care Teams Cistern Room Operator Relationship Specialty Start Date End Date Unknown, Provider, PCP - General 06/10/09 04/07/12 documented as of this encounter
--- OUTSIDE RECORDS SUMMARY | 2024-03-11 02:50 | XMS_ITS | Continuity of Care Document ---
Author Organization [facility] Address [address] [place] [address] Encounter [facility] FIN NBR [id number] Date(s): 12/14/23 - 12/14/23 [facility] [address] [place], [place] [address]
--- OUTSIDE RECORDS SUMMARY | 2024-03-11 02:50 | XMS_ITS | Clinical Summary ---
Author Organization [facility] Address [address] [place] [address] Care Team Providers Care Cash Surrender Calculator Name Role Phone Carline Reyna HARDENING MACHINE OPERATOR HELPER Primary Care Provider Social History Tobacco Use [...] (Late st Contact Info) Description 07/04/2024 14:00 [facility] Audiology [facility] Audiology [address] [address] Addie Bolivar, AuD [address] [place] [phone] 07/29/2024 13:00 [facility] Audiology [facility] Audiology [address] [address] Addie Bolivar, AuD [address] [place] [phone] 08/19/2024 11:30 [facility] Audiology [facility] Audiology [address] [address] Addie Bolivar, Anastacia [address] [place] [phone] Health Maintenance Due Date Last Done Comments Hepatitis C Screen 1950 RSV Immunization ( o r 60+ Years) (1 - 1-dose 60+ series) 2012 Fall Risk Screening 01/26/2017 COVID-19 Vaccine (2022-24 season) 2023 Key Sweeney E Personal/Family Self 1950 [address] [facility] [place] [facility] [address] Key Sweeney Personal/Family Self 1950 [address] [facility] [place] [address] Key Sweeney Personal/Family Self 1950 [address] [place] [address] Key Sweeney Personal/Family Self 1950 [address] [place] [address] Care Teams Cash Surrender Calculator Relationship Specialty Start Date End Date Carline Reyna NP PCP - General 11/25/17
--- OUTSIDE RECORDS SUMMARY | 2024-03-11 02:50 | XMS_ITS | Encounter Summary ---
Author Organization [facility] Address [facility] [place] [address] Care Team Providers Care Web Press Jogger Name Role Phone Areli Dueñas MD Primary Care Provider Reason for Visit * Reason Comments Skin Check Encounter Details Date Type Department Care Team (Late st Contact Info) Description 02/20/2011 8:00 AM EDT [place] [address] Bret Ramirez III, MD [facility] [address] [place] [address] Milia (Primary Dx); Photoaging of skin; SK (seborrheic keratosis) Discharge Disposition: Home Social History Tobacco Use Types Packs/Day Years Used Date Smoking Tobacco: Never Smokeless Tobacco: Never Sex and Gender Information Value Date Recorded Sex Assigned at Not on file Gender Identity Not on file Sexual Orientation Not on file documented as of this encounter Progress Notes * Bret Ramirez III, MD - 02/20/2011 8:39 AM EDT DERMATOLOGY ESTABLISHED PATIENT CLINIC NOTE Date of service: 02/20/2011 Key Sweeney : 1950 Provider: Bret Ramirez MD PROBLEM: skin exam SKIN HISTORY: skin tags, tinea pedis, milia HPI Key Sweeney is a 61 y.o. year old female. She is here for an annual skin exam. She has had much sun exposure in her past. She has no history of skin cancer or diseases. ADR: Allergies Allergen Reactions ??? Nickel CIS - Localized Reaction ROS General: feeling well Skin: denies other skin complaints EXAM General: NAD, pleasant, cooperative female. A total body skin exam except for the genitalia was performed. This includes examination of the skin of the face, ears, neck, chest, axillae, left and right upper and lower extremities, hands, feet, abdomen, back, and buttocks. The genitalia, perineum, and perianal areas were not examined. Skin: Significant skin findings: A. 0.1cm firm, round, white subcutaneous papule on face B. 0.4 brown papules with waxy, stuck-on appearance left posterior thigh, this lesion is itching and inflamed ASSESSMENT/PLAN: A. Milia - she will try applying tretinoin 0.025% at bedtime every other night for 2 weeks then every night as tolerated..Call if problems arise. This may also help photo aging and dyspigmentation. B. seborrheic keratosis -on thigh. I discussed this with the pt . Recommend liq N2. Procedure(s): Destruction of lesion(s) with cryotherapy. Number: 1 Location: as above Discussed procedure and expectations including risks (including risk of hypopigmentation) and benefits. Verbal consent obtained. Frozen with LN2, 15-30 second thaw time, TWICE. There were no complications; the patient tolerated the procedure well. Post-procedure expectations and wound care were reviewed. C. The nature of sun-induced photo-aging and skin cancers is discussed. Sun avoidance, protective clothing, and the use of 30-SPF sunscreens is advised. Observe closely for skin damage/changes, and call if such occurs. Reviewed various types of skin cancer and ABCDEs of melanoma. Note initiated by: .Estelle Barragan LPN Routed to physician for review and changes: Bret Ramirez MD Section of Dermatology [facility] documented in this encounter Plan of Treatment Not on file documented as of this encounter Visit Diagnoses Diagnosis Milia- Primary Sebaceous cyst Photoaging of skin Other chronic dermatitis due to solar radiation SK (seborrheic keratosis) Other seborrheic keratosis documented in this encounter Care Teams Web Press Jogger Relationship Specialty Start Date End Date Gresser, Areli, MD [address] [place] [address] PCP - General 07/02/10 documented as of this encounter
--- OUTSIDE RECORDS SUMMARY | 2024-03-11 02:50 | XMS_ITS | Clinical Summary ---
Author Organization [facility] Address [facility] [place] [address] Care Team Providers Care Glass Etcher Name Role Phone Areli Dueñas MD Primary Care Provider [phone] Allergies Active Allergy Reactions Criticality Noted Date Comments Nickel Low CIS - Localized Reaction Medications Medication Sig Dispensed Refills Start Date End Date Status metoprolol succinate (TOPROL XL) 100 mg XL tablet 01/29/2010 Active LORazepam (ATIVAN) 1 mg tablet Take 5 mg by mouth every 6 hours as needed. Active tretinoin (RETIN-A) 0.025 % creamIndications:Milia Apply topically. Every other night for 2 weeks then every night as tolerated. 45 g 1 02/20/2011 Active Active Problems Problem Noted Date Diagnosed Date Photoaging of skin 02/20/2011 Milia 02/20/2011 SK (seborrheic keratosis) 02/20/2011 Immunizations Name Administration Dates Next Due Influenza Vaccine, Whole 08/11/2007 Social History Tobacco Use Types Packs/Day Years Used Date Smoking Tobacco: Never Smokeless Tobacco: Never Sex and Gender Information Value Date Recorded Sex Assigned at Not on file Gender Identity Not on file Sexual Orientation Not on file Plan of Treatment Health Maintenance Due Date Last Done Comments CT Colonography 1950 Colonoscopy 1950 Colorectal Cancer Screening 1950 FIT DNA 1950 FIT 1950 Sigmoidoscopy (10 year) with FIT yearly 1950 Sigmoidoscopy 1950 Hepatitis C Screening 01/26/1970 Tdap adult 01/26/1971 Tetanus vaccine 01/26/1971 Breast Cancer Share Decision Needed 1992 Breast Cancer screening 1992 Zoster vaccine (1 of 2) 01/26/2002 Advance Directive 01/26/2007 Bone Density Scan 01/26/2017 Pneumoccocal Vaccine: 65+ (1 of 1 - PCV) 01/26/2017 Covid-19 Vaccine (1 - 2022-24 season) 2023 Influenza (Flu) vaccine (1 o f 1 - Influenza standard series) 04/10/2024 08/11/2007 Care Teams Glass Etcher Relationship Specialty Start Date End Date Areli Dueñas MD [address] [place] [address] PCP - General 07/02/10
--- OUTSIDE RECORDS SUMMARY | 2024-03-11 02:50 | XMS_ITS | Encounter Summary ---
Author Organization [facility] Address [address] [place] [address] Care Team Providers Care Appeals Reviewer Veteran Name Role Phone Carline Reyna CORPORATE WELLNESS COORDINATOR Primary Care Provider [phone] Encounter Details Date Type Department Care Team (Late st Contact Info) Description 03/11/2021 Lab Requisition [facility] Pathology & Laboratory Medicine - [address] [address] Erica Link MD [address] [place] [address] [address] [place], [place] [id number] Encounter for other general examination Social History Tobacco Use Types Packs/Day Years [...] Contact Info) Description 07/04/2024 14:00 EST Audiology [facility] Audiology - [address] [id number] Addie Bolivar AuD [address] [place] [phone] 07/29/2024 13:00 EST Audiology [facility] Audiology - [address] [place] [address] Addie Bolivar, AuD [address] [place] [address], [place] [phone] 08/19/2024 11:30 EST Audiology [facility] Audiology - [address], [place] [address] Addie Bolivar, AuD [address] [place] [phone] documented as of this encounter Procedures Procedure Name Priority Date/Time Associated Diagnosis Comments SURGICAL PATHOLOGY Today 03/11/2021 8: 26 EDT Encounter for other general examination documented in this encounter Results * SURGICAL PATHOLOGY (03/11/2021 8:26 EDT) Note to Patient The following pathology results have been interpreted by your pathologist and may be available to you before your health provider has had the opportunity to review them. Please allow time for your provider to receive these results and explore management options, if applicable. 03/13/2021 9:46 [facility] Final Diagnosis A. COLON, TRANSVERSE, POLYP, BIOPSY: - Tubular adenoma. B. RECTUM, POLYP, BIOPSY: - Hyperplastic polyp. 03/13/2021 9:46 [facility] Attestation There was significant resident/fellow involvement in the diagnostic evaluation of this case. By the signature below, the attending physician certifies that they have personally conducted a gross and/or microscopic examination of the described specimens and rendered or confirmed the above diagnosis. 03/13/2021 9:46 [facility] at 0946 Clinical History History of polyps 03/13/2021 9:46 [facility] Gross Description A. Received in formalin labelled with proper patient identification (initials R, S) and transverse colon polyp is a rangel irregular tissue, 0.3 x 0.2 x 0.2 cm. Entirely submitted in A1. B. Received in formalin labelled with proper patient identification (initials R, S) and rectal polyp is a rangel nodular tissue, 0.2 x 0.2 x 0.1 cm. Entirely submitted in B1. SHARI JEFFREY(ASCP) 03/11/2021 17:39 03/13/2021 9:46 EDT [facility] Resident/Russell w: Ricky Shanks DO 03/13/2021 9:46 EDT [facility] Performing Lab [facility] 03/13/2021 9:46 EDT [facility] Scanned Images 03/13/2021 9:46 EDT [facility] Tissue SPECIMEN FROM RECTUM / Unknown 03/11/2021 8:26 EDT 03/11/2021 16:03 EDT Tissue specimen (specimen) SPECIMEN FROM RECTUM / Unknown 03/11/2021 8:26 EDT 03/11/2021 16:03 EDT Erica Link MD PATHOLOGY ORDERA BLES [facility] [address] [place] [address] documented in this encounter Visit Diagnoses Diagnosis Encounter for other general examination documented in this encounter Care Teams Appeals Reviewer Veteran Relationship Specialty Start Date End Date Carline Reyna NP PCP - General 11/25/17 documented as of this encounter
--- OUTSIDE RECORDS SUMMARY | 2024-03-11 02:50 | XMS_ITS | Encounter Summary ---
Author Organization [facility] Address [address] [place] [address] Care Team Providers Care Executive Receptionist Name Role Phone Areli Dueñas MD Primary Care Provider [phone] Encounter Details Date Type Department Care Team (Late st Contact Info) Description 06/19/2015 Results Only [facility] [phone] Betsey Parson, CAL [address] [place] [address] [place] [phone] Social History Tobacco Use Types Packs/Day Years Used Date Smoking Tobacco: Never Assessed Sex and Gender Information Value Date Recorded Sex Assigned at Not on file Gender Identity Not on file Sexual Orientation Not on file documented as of this encounter Plan of Treatment Upcoming Encounters Date Type Department Care Team (Late st Contact Info) Description 07/04/2024 14:00 EST Audiology [facility] Audiology - [address] [address] Addie Bolivar, AuD [address] [place] [phone] 07/29/2024 13:00 EST Audiology [facility] Audiology - [address] [id number] Addie Bolivar, AuD [address] [place] [phone] 08/19/2024 11:30 EST Audiology [facility] Audiology - [facility] [address] [place], [place] [address] Addie Bolivar, AuD [address] [place] [phone] documented as of this encounter Procedures Procedure Name Priority Date/Time Associated Diagnosis Comments PAP TEST- RESULT ONLY Routine 06/19/2015 0:00 EST documented in this encounter Results * PAP TEST- RESULT ONLY (06/19/2015 0:00 EST) Pathology Report: CYTOPATHOLOGY REPORT Reports generated via electronic interface contain original data; however they are lacking the format of the original report. Caution should be taken when reading/interpreti ng unformatted reports. Name: ? JANELL CAMILO ? Accession #: ? [id number] ? : ? 1950 (Age: 65) ??F ?Collect Date: ? 06/19/2015 ? Location: ? [facility] ? Receive Date: ? 06/21/2015 ? Provider: BETSEY PARSON REMOTE SENSING TECHNOLOGIST Copy to: ? Final Report SPECIMEN ADEQUACY ? Satisfactory for Evaluation - assessment of transformation zone component not applicable ( e.g. atrophy, vaginal sample, hysterectomy) GENERAL CATEGORIZATION ? Negative for Intraepithelial Lesion or Malignancy ?? Menstrual/Pregnanc y Status: ??Post Menopausal Previous Gynecologic Pathology: HPV: + with normal pap 06/16/14 Specimen/Source: ??Pap Test, Cervix/Endocervix, ThinPrep Imaging System with manual evaluation Document reviewed and electronically signed by: ? PERRI Al(ASCP) ? Report ??Date: 06/26/2015 08:39 HPV with Pap Test ? Date Ordered: ? 06/25/2015 ? Status: ?? Signed Out ?Date Complete: ? 06/28/2015 ? By: ??System Interface ? Date Reported: ? 06/28/2015 ? Interpretation RESULT: Negative for HPV. No E6 or E7 mRNA is detected from HPV types 16,18,31,33,35, 39,45,51,52,56,58, 59,66, and 68 by skein inspector mediated amplification. Comments Document reviewed and electronically signed by: ? System Interface ? Report date: 06/28/2015 By the signature above, the attending physician certifies that he/she has personally conducted a gross and/or microscopic examination of the described specimens and rendered or confirmed the above diagnosis. End of Report [facility] 06/19/2015 06/21/2015 Betsey Parson REMOTE SENSING TECHNOLOGIST PATHOLOGY ORDERABLES [facility] [address] [place] [address] documented in this encounter Visit Diagnoses Not on filedocumented in this encounter Care Teams Executive Receptionist Relationship Specialty Start Date End Date Areli Dueñas MD [address] [place] [address] PCP - General 04/08/12 11/24/17 documented as of this encounter
[2024-03-11 12:44] LABS: Anion Gap 9.9 mmol/L (3-11); BUN 19 mg/dL (7-18); CO2 25.1 mmol/L (21.0-32.0); Calculated LDL 78 mg/dL (<100); Chloride 106 mmol/L (98-107); Cholesterol 181 mg/dL (<200); Estimated GFR 59.86 (mL/min/1.73m2); Glucose 117 mg/dL (74-106); HDL Cholesterol 53 mg/dL (40-60); Potassium 4.1 mmol/L (3.5-5.1); Sodium 141 mmol/L (136-145); Triglyceride 250 mg/dL (<150)
[2024-03-11 19:05] LABS: HIV-1/2 Ag & Ab Screen Negative (Negative)
[2024-03-11 19:07] LABS: HBs Antibody, Quant 5.3 mIU/mL (See Note); Hep B Surface Ab Negative (See Note); Hepatitis B Core Antibody Negative (Negative); Hepatitis B Surface Antigen Negative (Negative)
[2024-03-11 19:08] LABS: Hepatitis C Ab w Rflx HCV PCR Negative (Negative)
== END 2024-03-11 02:34 | disposition home or self-care (01) ==
LOC: LOS 02:33
PROVIDERS: PCP Nurse Practitioner Family; Visit Provider Nurse Practitioner Family
DX: I10 Essential (primary) hypertension; G47.33 Obstructive sleep apnea (adult) (pediatric); N18.9 Chronic kidney disease, unspecified; R73.03 Prediabetes; Z11.59 Encounter for screening for other viral diseases; Z11.4 Encounter for screening for human immunodeficiency virus [HIV]
CPT/HCPCS: 36415; 80048; 80061; 86704; 86706; 86803; 87340; 87389; 83036

== ENCOUNTER 2024-04-04 02:33 | Outpatient (CLI) | payer MEDICARE, BC, SELFPAY | END 2024-04-04 02:53 | LOC: DI 02:33 | PROVIDERS: PCP Nurse Practitioner Family; Visit Provider Nurse Practitioner Family | DX: Z12.31 Encounter for screening mammogram for malignant neoplasm of breast (principal) | CPT/HCPCS: 77063; 77067 ==

== ENCOUNTER 2025-07-24 00:55 | Outpatient (CLI) | payer MEDICARE, BC, SELFPAY ==
[2025-07-24 13:19] LABS: Abs Immature Grans 0.02 10^3/uL (0.0-0.06); HCT 40.3 % (36.0-46.0); HGB 13.3 g/dL (11.2-15.7); Immature Grans % 0.2 %; MCH 27.5 pg (27.0-33.0); MCHC 33.0 % (32.0-36.0); MCV 83 fL (80-95); MPV 9.3 fL (8.0-11.0); Platelet Count 312 10^3/uL (130-400); RBC 4.83 10^6/uL (3.93-5.22); RDW 13.6 % (11.7-14.6); RDW-SD 41.8 fL; WBC 10.20 10^3/uL (4.4-10.8)
[2025-07-24 13:42] LABS: Hemoglobin A1C 5.8 % (<5.7)
[2025-07-24 13:44] LABS: Glucose Negative (Negative)
[2025-07-24 14:11] LABS: Prot/Crea Ur Ratio 0.11 mg/mg Cr
[2025-07-24 14:12] LABS: Microalb ug/mg Crea 16.2 ug/mg Cr
[2025-07-24 14:12] LABS: ALT 21 U/L (10-49); AST 21 U/L (<34); Albumin 4.5 g/dL (3.2-5.0); Alkaline Phosphatase 82 U/L (46-116); Anion Gap 10.4 mmol/L (3-11); BUN 22 mg/dL (9-23); Bilirubin, Total 0.5 mg/dL (0.2-1.2); CO2 25.6 mmol/L (20.0-31.0); Calcium 9.3 mg/dL (8.3-10.6); Chloride 107 mmol/L (98-107); Glucose 82 mg/dL (74-106); Potassium 4.5 mmol/L (3.5-5.1); Sodium 143 mmol/L (136-145); Total Protein 7.5 g/dL (5.7-8.2)
[2025-07-24 14:15] LABS: Ferritin 295 ng/mL (7-271); Vitamin D 25 Total 34 ng/mL (30-100)
[2025-07-25 14:52] LABS: Albumin 59.1 % (55.8-66.1); Albumin g/dL 4.6 g/dL (3.6-5.2); Alpha 1 g/dL 0.30 g/dL (0.15-0.40); Alpha 2 g/dL 0.80 g/dL (0.50-1.00); Beta g/dL 0.80 g/dL (0.60-1.20); Gamma g/dL 1.30 g/dL (0.60-1.60); Total Protein 7.7 g/dL (6.3-8.2)
[2025-07-25 19:00] LABS: Cystatin C, S 1.04 mg/L
== END 2025-07-24 00:56 | disposition home or self-care (01) ==
LOC: LBO 00:55
PROVIDERS: PCP Nurse Practitioner Family; Visit Provider Nurse Practitioner Family
DX: N18.30 Chronic kidney disease, stage 3 unspecified (principal); R73.03 Prediabetes
CPT/HCPCS: 36415; 80053; 82306; 82610; 81003; 82043; 82565; 82570; 82728; 83036; 83970; 84156; 84165; 85025